=== PATIENT | female | born 1975 | race Caucasian/White ===

== ENCOUNTER → 2017-12-31 | Outpatient (CLI) | payer OTHER | LOC: LAB SHORT 11:43 → LAB EV 11:43 | DX: L03.317 Cellulitis of buttock (principal) | CPT/HCPCS: 87070; 87075; 87077; 87186; 87205 ==

== ENCOUNTER 2019-05-30 17:30 | Emergency (ER) | payer OTHER ==
[~2019-05-30] VITALS: Ht 172.7 cm; Wt 85.7 kg
[2019-05-30 18:28] LABS: BASOPHILS ABSOLUTE AUTO 0.07 K/mm3 (0.00-0.23); BASOPHILS PERCENT AUTO 1 % (0-2); EOSINOPHILS ABSOLUTE AUTO 0.34 K/mm3 (0.00-0.68); EOSINOPHILS PERCENT AUTO 3 % (0-6); Hematocrit 38.6 % (33.0-51.0); Hemoglobin 12.6 g/dL (11.5-16.0); IMMATURE GRAN ABSOLUTE AUTO 0.05 K/mm3 (0.00-0.10); IMMATURE GRAN PERCENT AUTO 1 % (0-1); LYMPHOCYTES ABSOLUTE AUTO 2.57 K/mm3 (0.84-5.20); LYMPHOCYTES PERCENT AUTO 25 % (21-46); MONOCYTES ABSOLUTE AUTO 0.72 K/mm3 (0.16-1.47); MONOCYTES PERCENT AUTO 7 % (4-13); Mean Corpuscular HGB Conc 32.6 g/dL (31.5-36.5); Mean Corpuscular Volume 95 fL (80-100); Mean Platelet Volume 11.3 fL (9.1-12.4); NEUTROPHILS PERCENT AUTO 64 % (41-73); Platelet Count 242 K/mm3 (150-400); RDW Coefficient Variation 13.5 % (11.7-14.2); RDW Standard Deviation 47.2 fL (35.1-46.3); Red Blood Cell Count 4.07 M/mm3 (3.80-5.20); White Blood Cell Count 10.45 K/mm3 (4.00-11.30)
[2019-05-30 18:45] LABS: Source, Urine Clean Catch
[2019-05-30] MEDS ORDERED: ARIPIPRAZOLE10 M1 PO (18:46)
[2019-05-30] MEDS ORDERED: QUETIAPINE FUM100 MG PO (18:46)
[2019-05-30] MEDS ORDERED: Buspirone HCl30 MG PO (18:47)
[2019-05-30] MEDS ORDERED: LITH300ER PO (18:47)
[2019-05-30] MEDS ORDERED: DULO60 PO (18:47)
[2019-05-30] MEDS ORDERED: Clonazepam0.5 MG PO (18:47)
[2019-05-30] MEDS ORDERED: Ultram50 MG PO (18:47)
[2019-05-30] MEDS ORDERED: Naltrexone HCl50 MG PO (18:48)
[2019-05-30] MEDS ORDERED: CYCL10 PO (18:48)
[2019-05-30] MEDS ORDERED: Neurontin 100100 MG PO (18:48)
[2019-05-30] MEDS ORDERED: PROP120ER PO (18:48)
[2019-05-30 18:50] LABS: Alanine Aminotransfer (ALT/SGP 25 U/L (12-78); Albumin, Blood 3.6 g/dL (3.4-5.0); Albumin/Globulin Ratio 0.9 (0.8-1.8); Alk Phos 99 U/L (50-136); Anion Gap 6 mmol/L (6-16); Aspartate Aminotrans (AST/SGOT 35 U/L (12-37); Bilirubin, Total 0.4 mg/dL (0.1-1.0); Blood Urea Nitrogen 14 mg/dL (8-24); Bun/Creatinine Ratio 13.5 (12.0-20.0); CO2, Blood 23 mmol/L (21-32); Calcium, Blood 9.1 mg/dL (8.5-10.1); Chloride, Blood 107 mmol/L (98-108); Creatinine, Blood 1.04 mg/dL (0.40-1.00); Globulin, Blood 4.2 g/dL (2.2-4.0); Glomerular Filtration Rate >60 (60-); Glucose, Blood 109 mg/dL (70-99); Potassium, Blood 4.1 mmol/L (3.5-5.5); Sodium, Blood 136 mmol/L (136-145); Total Protein, Blood 7.8 g/dL (6.4-8.2)
[2019-05-30 18:54] LABS: Bilirubin, Urine Neg (Neg); Blood, Urine Neg (Neg); Glucose Qualitative, Urine Neg (Neg); Ketones, Urine 1+ (Neg); Leukocyte Esterase, Urine 3+ (Neg); Nitrite, Urine Neg (Neg); Protein, Urine 1+ (Neg); Urobilinogen, Urine NORM (Normal)
[2019-05-30 19:00] LABS: Lithium 1.21 mmol/L (0.60-1.20)
[2019-05-30 19:03] LABS: Appearance, Urine Clear (Clear); Color, Urine Yellow (P-Yellow)
[2019-05-30 19:04] LABS: Bacteria Few /hpf; Red Blood Cells, Urine 0-2 /hpf (0-2); Squamous Epithelial Cells Few /hpf (Few); White Blood Cells, Urine 25-50 /hpf (0-5)
== END 2019-05-30 21:39 | disposition home or self-care (01) ==
LOC: ER 17:30
PROVIDERS: Emergency Medicine; Physician Assistant
DX: T56.891A Toxic effect of other metals, accidental (unintentional), initial encounter (principal); E86.0 Dehydration; Z88.2 Allergy status to sulfonamides
CPT/HCPCS: 36415; 80053; 80178; 81001; 81025; 85025; 87086; 93005; 93010; 96361; 96374; 99284-25; J2405; J7030